=== PATIENT | female | born 1940 | race African-American/Black ===

== ENCOUNTER 2022-06-01 12:35 | Inpatient (IN) | payer MEDICARE, OTHER ==
[~2022-06-01] VITALS: Ht 167.6 cm; Wt 68.0 kg
[2022-06-01] MEDS ORDERED: ACETAMINOPHEN WITH CODEINE 300/30MG TABLET PO ONE (13:00)
[2022-06-01] MEDS ORDERED: MORPHINE SULFATE 4 MG/ML CPJ (NOT FOR IM USE) IV STA (14:58)
[2022-06-01] MEDS ORDERED: ONDANSETRON HCL 4MG/2ML INJ IV STA (14:58)
[2022-06-01] MEDS ORDERED: CEFTRIAXONE 1 G PREMIX 50 ML IV ONE (15:00)
[2022-06-01] MEDS ORDERED: SODIUM CHLORIDE 0.9% 1000ML BAG (SEPSIS BOLUS) IV ONE (15:00)
[2022-06-01 15:54] LABS: BASOPHILS % 0.1 % (0.0-2.0); EOSINOPHILS % 0.2 % (0.0-5.0); HEMATOCRIT. 42.9 % (36.0-48.0); HEMOGLOBIN. 13.6 g/dL (12.0-16.0); LYMPHOCYTES % 12.1 % (20.0-50.0); MEAN CORPUSCULAR HEMOGLOBIN 29.5 pg (28.0-32.0); MEAN CORPUSCULAR VOLUME 92.7 fL (81.0-99.0); MEAN PLATELET VOLUME 9.1 fl (7.4-10.4); MONOCYTES % 4.2 % (2.0-8.0); NEUTROPHILS % 83.4 % (40.0-76.0); PLATELET 146 x1000/uL (130-400); RED BLOOD CELL COUNT 4.63 mill/uL (4.2-5.4); RED CELL DISTRIBUTION WIDTH 14.5 % (11.6-14.6)
[2022-06-01 16:12] LABS: CHLORIDE 102 mEq/L (98-107)
[2022-06-01] MEDS ORDERED: MORPHINE SULFATE 4 MG/ML CPJ (NOT FOR IM USE) IV NR (17:30)
[2022-06-01] MEDS ORDERED: ONDANSETRON HCL 4MG/2ML INJ IV NR (17:30)
[2022-06-01] MEDS ORDERED: ACETAMINOPHEN WITH CODEINE 300/30MG TABLET PO NR (17:30)
[2022-06-01] MEDS ORDERED: CEFTRIAXONE 1 G PREMIX 50 ML IV NR (17:30)
[2022-06-02 04:21] VITALS: BP 128/69
[2022-06-02 05:58] LABS: CLARITY URINE TURBID (CLEAR); COLOR URINE YELLOW (YELLOW); KETONES URINE TRACE (NEGATIVE); LEUKOCYTE ESTERASE URINE 3+ (NEGATIVE); NITRITE URINE POSITIVE (NEGATIVE); OCCULT BLOOD URINE 2+ (NEGATIVE); PROTEIN URINE 1+ (NEGATIVE)
[2022-06-02] MEDS ORDERED: MAGNESIUM/ALUMINUM HYDROXIDE/SIMETHICONE 30ML UDC PO PRN (06:30)
[2022-06-02] MEDS ORDERED: DOCUSATE SODIUM 100MG CAPSULE PO PRN (06:30)
[2022-06-02] MEDS ORDERED: KETOROLAC 15MG/ML VIAL IV PRN (06:30)
[2022-06-02] MEDS ORDERED: ONDANSETRON HCL 4MG/2ML INJ IV PRN (06:30)
[2022-06-02] MEDS ORDERED: ACETAMINOPHEN 325MG TABLET PO PRN (06:30)
[2022-06-02] MEDS ORDERED: CLONIDINE 0.1MG TABLET PO PRN (06:30)
[2022-06-02 08:00] VITALS: BP 149/77
[2022-06-02] MEDS ORDERED: FAMOTIDINE 20MG TABLET PO SCH (09:00)
[2022-06-02] MEDS ORDERED: SULFAMETHOXAZOLE/TRIMETHOPRIM 800/160MG TABLET PO SCH (09:00)
[2022-06-02] MEDS ORDERED: ENOXAPARIN 40MG/0.4ML SYR SUBCUT SCH (09:00)
[2022-06-02 12:00] VITALS: BP 173/93
[2022-06-02] MEDS ORDERED: SULF1TAB44 PO (14:02)
[2022-06-02 14:36] VITALS: BP 114/70
== END 2022-06-02 15:58 | disposition home or self-care (01) | DRG 690 ==
LOC: ER 12:35 → EDBEDREQTM 15:10 → EDBEDREQ 15:10 → EDBEDREQTM 19:36 → ENRESERV 06-02 01:21 → 7WST 06-02 04:59
PROVIDERS: ADMIT Internal Medicine Pulmonary Disease; ATTEND Internal Medicine Pulmonary Disease
DX: N39.0 Urinary tract infection, site not specified (principal); N32.1 Vesicointestinal fistula; I10 Essential (primary) hypertension; Z79.82 Long term (current) use of aspirin
CPT/HCPCS: 36415; 71045; 72131; 72192; 80053; 81003; 83605; 84145; 84484; 85025; 87077; 87186; 93005; 99285; J0696; J1650; J2270; J2405; J7030

== ENCOUNTER 2025-06-26 20:18 | Emergency (ER) | payer MEDICARE, OTHER ==
[~2025-06-26] VITALS: Ht 165.1 cm; Wt 58.0 kg
[~2025-06-26 20:18] MED LIST: SULF1TAB44 PO
[2025-06-26 20:20] VITALS: O2SAT 95
[2025-06-26 22:25] VITALS: BP 134/67; PULSE 72; RESP 16; TEMP 36.8; O2SAT 96
== END 2025-06-26 22:25 | disposition home or self-care (01) ==
LOC: ER 20:18
DX: I10 Essential (primary) hypertension (principal); E78.00 Pure hypercholesterolemia, unspecified; Z96.641 Presence of right artificial hip joint; W01.0XXA Fall on same level from slipping, tripping and stumbling without subsequent striking against object, initial encounter; Y92.009 Unspecified place in unspecified non-institutional (private) residence as the place of occurrence of the external cause; Y93.89 Activity, other specified; Y99.8 Other external cause status
CPT/HCPCS: 72170; 99283

== ENCOUNTER 2025-08-23 14:57 | Emergency (ER) | payer OTHER ==
[~2025-08-23] VITALS: Ht 165.1 cm; Wt 64.4 kg
[2025-08-23 15:04] VITALS: O2SAT 99
[2025-08-23 17:19] LABS: BASOPHILS % 0.3 % (0.0-2.0); EOSINOPHILS % 1.5 % (0.0-5.0); HEMATOCRIT. 40.0 % (36.0-48.0); HEMOGLOBIN. 13.0 g/dL (12.0-16.0); LYMPHOCYTES % 32.0 % (20.0-50.0); MEAN PLATELET VOLUME 9.5 fl (7.4-10.4); MONOCYTES % 10.0 % (2.0-8.0); NEUTROPHILS % 56.2 % (40.0-76.0); PLATELET 129 x1000/uL (130-400); RED BLOOD CELL COUNT 4.30 mill/uL (4.2-5.4); RED CELL DISTRIBUTION WIDTH 13.2 % (11.6-14.6)
[2025-08-23 17:30] LABS: INR 1.0
[2025-08-23 17:32] LABS: CREATININE 1.1 mg/dL (0.6-1.0)
[2025-08-23 17:33] LABS: TROPONIN I HIGH SENSITIVITY 5 ng/L (3.0-34); UREA NITROGEN BLOOD 16 mg/dL (9-23)
[2025-08-23 17:34] LABS: ASPARTATE AMINOTRANSFERASE 21 IU/L (<34)
[2025-08-23 17:35] LABS: BILIRUBIN DIRECT 0.2 mg/dL (<=3.0); BILIRUBIN TOTAL 0.5 mg/dL (0.1-1.0); PROTEIN TOTAL 6.3 g/dL (6.0-8.3)
[2025-08-23 19:48] LABS: CLARITY URINE CLEAR (CLEAR); COLOR URINE YELLOW (YELLOW); GLUCOSE URINE NEGATIVE (NEGATIVE); KETONES URINE NEGATIVE (NEGATIVE); LEUKOCYTE ESTERASE URINE NEGATIVE (NEGATIVE); NITRITE URINE NEGATIVE (NEGATIVE); OCCULT BLOOD URINE NEGATIVE (NEGATIVE); PH URINE 8.0 (4.5-8.0); PROTEIN URINE NEGATIVE (NEGATIVE); SPECIFIC GRAVITY URINE 1.035 (1.005-1.030); UROBILINOGEN URINE 1.0 E.U./dL (0.2-1.0)
[2025-08-23 19:57] LABS: *AMPHETAMINES SCREEN URINE NEGATIVE (NEGATIVE); *BARBITURATES SCREEN URINE NEGATIVE (NEGATIVE); *BENZODIAZEPINES SCREEN URINE NEGATIVE (NEGATIVE); *COCAINE SCREEN URINE NEGATIVE (NEGATIVE); CANNABINOID URINE SCREEN NEGATIVE (NEGATIVE); ECSTASY MDMA SCREEN URINE NEGATIVE (NEGATIVE); METHADONE URINE SCREEN NEGATIVE (NEGATIVE); OPIATES URINE SCREEN NEGATIVE (NEGATIVE); PHENCYCLIDINE URINE SCREEN NEGATIVE (NEGATIVE)
[2025-08-23] MEDS: IOHEXOL-350 100 ML BOTTLE ONE (20:19)
[2025-08-23 21:24] VITALS: BP 140/72; PULSE 75; RESP 16; TEMP 36.6; O2SAT 97
[2025-08-23] MEDS ORDERED: IPRATROPIUM/ALBUTEROL 0.5-3(2.5)MG/3ML NEB HHN PRN (22:00)
[2025-08-23] MEDS ORDERED: CLONIDINE 0.1MG TABLET PO PRN (22:00)
[2025-08-23] MEDS ORDERED: DOCUSATE SODIUM 100MG CAPSULE PO PRN (22:00)
[2025-08-23] MEDS ORDERED: IPRATROPIUM/ALBUTEROL 0.5-3(2.5)MG/3ML NEB HHN SCH (22:00)
[2025-08-23] MEDS ORDERED: ZOLPIDEM TARTRATE 5MG TABLET PO PRN (22:00)
[2025-08-23] MEDS ORDERED: ACETAMINOPHEN 325MG TABLET PO PRN (22:00)
[2025-08-24] MEDS ORDERED: PANTOPRAZOLE 40MG DR TABLET PO SCH (07:50)
[2025-08-24] MEDS ORDERED: ENOXAPARIN 40MG/0.4ML SYR SUBCUT SCH (09:00)
== END 2025-08-23 21:52 | disposition short-term general hospital (02) ==
LOC: ER 14:57 → EDBEDREQ 16:00 → EDBEDREQTM 18:00 → EDBEDREQ 18:00 → ER 21:52 → CMPBEDREQ 08-24 07:34
DX: R27.0 Ataxia, unspecified (principal); E78.00 Pure hypercholesterolemia, unspecified; I10 Essential (primary) hypertension; J44.9 Chronic obstructive pulmonary disease, unspecified; Z86.73 Personal history of transient ischemic attack (TIA), and cerebral infarction without residual deficits; Z79.82 Long term (current) use of aspirin; Z87.19 Personal history of other diseases of the digestive system; Z79.899 Other long term (current) drug therapy
CPT/HCPCS: 80076; 80305; 80048; 81003; 80320; 85025; 85610; 85730; 84484; 36415; 71045; 70496; 70498; 70450; 93005; 99291; Q9967; A4606; G0480